=== PATIENT | female | born 1995 | race Two or more races ===

== ENCOUNTER 2020-06-20 20:22 | Emergency (ER) | payer OTHER ==
[2020-06-20] MEDS ORDERED: Sodium Chloride 0.9% 10 ML Syringe FLUSH PRN (21:06)
[2020-06-20] MEDS ORDERED: Ondansetron 4 MG/2 ML SDV IVPUSH ONE (21:06)
[2020-06-20] MEDS ORDERED: Sodium Chloride 0.9% 2.5 ML Syringe FLUSH PRN (21:06)
[2020-06-20] MEDS ORDERED: Lactated Ringers 1,000 ML IV ONE (21:06)
--- NOTE | 2020-06-20 21:14 | EDM.PDOC ---
ED HPI GENERAL MEDICAL PROBLEM - General Chief Complaint: General Stated Complaint: DEHYDRATION [id number] Time Seen by Provider: 06/20/20 21:05 Source of Information: Reports: Patient History Limitations: Reports: No Limitations - History of Present Illness INITIAL COMMENTS - FREE TEXT/NARRATIVE: 25-year-old female , [place] 7 weeks presents with nausea vomiting and not to lerating p.o. since Thursday. She has been taking vitamin B6, Unisom, vitamins. She denies fever, diarrhea, abdominal pain, leakage of fluid, vaginal bleeding, contractions, dysuria. Her ASSOCIATE PROFESSOR OF ENGINEERING = Dr. Wolfe. ROS: A 10-point review of systems, other than pertinent positives and negatives as stated per HPI, is otherwise negative Past medical history: No additional pertinent history Past Surgical history: No additional pertinent history Social history: No additional pertinent history Family history: No additional pertinent history PHYSICAL EXAM General: AOx4, GCS = 15, No distress HEENT: dry mucous membrane Neck: supple, no meningismus, no Kernig or Brudzinski Cardiac: S1S2 tachycardia Respiratory: CTAB, no crackles or rales, no wheezing Abdomen: Soft, nontender, no rebound or guarding, nondistended, no pulsatile mass. Back: nontender Musculoskeletal: NVI distally, no deformity Neuro: No focal deficits, CN 2 - 12 WNL. Chest Pain Score (Numeric/FACES): 7 - Related Data Allergies Allergy/AdvReac Type Severity Reaction Status Date / Time No Known Allergies Allergy Verified 06/20/20 20:37 Home Meds: Home Meds Doxylamine Succinate [Unisom] 1 tab PO DAILY PRN 01/05/18 [History] Pnv No.95/Ferrous Fum/Folic AC [ Tablet] 1 tab PO DAILY 01/05/18 [History] Pyridoxine HCl (Vitamin B6) [Vitamin B-6] 100 mg PO DAILY 01/05/18 [History] Iron,Carbonyl [Iron Chews] 45 mg PO DAILY 06/20/20 [History] Ondansetron [Zofran ODT] 4 mg PO Q6H PRN #12 tab.dis 06/20/20 [Rx] buPROPion [buPROPion XL] 150 mg PO DAILY 06/20/20 [History] Past Medical History - Past Health History Medical/Surgical History: Denies Medical/Surgical History HEENT History: Reports: Impaired Vision Cardiovascular History: Reports: None Respiratory History: Reports: None Gastrointestinal History: Reports: GERD Genitourinary History: Reports: None ASSOCIATE PROFESSOR OF ENGINEERING History: Reports: Musculoskeletal History: Reports: None Neurological History: Reports: Migraines Psychiatric History: Reports: Depression, Panic Attack, PTSD Endocrine/Metabolic History: Reports: Obesity/BMI 30+ Hematologic History: Reports: None Other Hematologic History: anemia during Immunologic History: Reports: None Oncologic (Cancer) History: Reports: None Dermatologic History: Reports: None - Infectious Disease History Infectious Disease History: Reports: Chicken Pox - Past Surgical History HEENT Surgical History: Reports: Oral Surgery, Other (See Below) Other HEENT Surgeries/Procedures: wisdom teeth extraction Endocrine Surgical History: Reports: None Neurological Surgical History: Reports: None - Past Imaging History Past Imaging History: Reports: Ultrasound Social & Family History - Family History Family Medical History: No Pertinent Family History HEENT: Reports: Hearing Impairment Cardiac: Reports: Other (See Below) Other Cardiac Family History: Enlarged heart OBGYN: Reports: Endocrine/Metabolic: Reports: Diabetes, type II - Caffeine Use Caffeine Use: Reports: None - Recreational Drug Use Recreational Drug Type: Reports: Marijuana/Hashish ED ROS GENERAL - Review of Systems Review Of Systems: See Below (see dictation) ED EXAM, GENERAL - Physical Exam Exam: See Below (see dictation) #1 Interpretation EKG Interpretation Comments: Heart rate = 89 bpm, normal sinus rhythm, normal QRS interval, no STEMI. EKG and rhythm strip interpreted by me at 2050 Course - Vital Signs Last Recorded V/S: Last Vital Signs Temp 98.8 F 06/20/20 20:40 Pulse 85 06/20/20 22:49 Resp 14 06/20/20 22:49 BP 111/88 06/20/20 22:49 Pulse Ox 96 06/20/20 22:49 Orthostatic Blood Pressure [ 142/77 Standing] Orthostatic Blood Pressure [ 121/81 Sitting] Orthostatic Blood Pressure [ 121/72 Supine] - Orders/Labs/Meds Orders: Active Orders 24 hr Category Date Time Status Cardiac Monitoring [RC] . DIRECTED Care 06/20/20 21:06 Active EKG 12 Lead [EKG Documentation Completion] [RC] STAT Care 06/20/20 20:59 Active CULTURE URINE [RM] Stat Lab 06/20/20 23:27 Ordered Sodium Chloride 0.9% [Saline Flush] Med 06/20/20 21:06 Active 10 ml FLUSH ASDIRECTED PRN Sodium Chloride 0.9% [Saline Flush] Med 06/20/20 21:06 Active 2.5 ml FLUSH ASDIRECTED PRN Saline Lock Insert [OM.PC] Stat Oth 06/20/20 21:06 Ordered Medication Orders Sodium Chloride (Saline Flush) 10 ml FLUSH ASDIRECTED PRN PRN Reason: Keep Vein Open Sodium Chloride (Saline Flush) 2.5 ml FLUSH ASDIRECTED PRN PRN Reason: Keep Vein Open Labs: Laboratory Tests 06/20/20 06/20/20 06/20/20 Range/Units 21:30 21:30 22:50 WBC 11.82 H (4.0-11.0) K/uL RBC 4.89 (4.30-5.90) M/uL Hgb 14.5 (12.0-16.0) g/dL Hct 41.4 (36.0-46.0) % MCV 84.7 (80.0-98.0) fL MCH 29.7 (27.0-32.0) pg MCHC 35.0 (31.0-37.0) g/dL RDW Std Deviation 36.3 (28.0-62.0) fl RDW Coeff of [place] 12 (11.0-15.0) % Plt Count 241 (150-400) K/uL MPV 11.60 (7.40-12.00) fL Neut % (Auto) 68.2 (48.0-80.0) % Lymph % (Auto) 24.0 (16.0-40.0) % [place] % (Auto) 7.4 (0.0-15.0) % Eos % (Auto) 0.3 (0.0-7.0) % Baso % (Auto) 0.1 (0.0-1.5) % Neut # (Auto) 8.1 H (1.4-5.7) K/uL Lymph # (Auto) 2.8 H (0.6-2.4) K/uL [place] # (Auto) 0.9 H (0.0-0.8) K/uL Eos # (Auto) 0.0 (0.0-0.7) K/uL Baso # (Auto) 0.0 (0.0-0.1) K/uL Nucleated RBC % 0.0 /100WBC Nucleated RBCs # 0 K/uL Sodium 139 (136-145) mmol/L Potassium 3.8 (3.5-5.1) mmol/L Chloride 104 (98-107) mmol/L Carbon Dioxide 19.1 L (21.0-32.0) mmol/L BUN 12 (7.0-18.0) mg/dL Creatinine 0.6 (0.6-1.0) mg/dL Est Cr Clr Drug Dosing 124.85 mL/min Estimated GFR (MDRD) > 60.0 ml/min Glucose 82 (74-106) mg/dL Calcium 9.3 (8.5-10.1) mg/dL Phosphorus 3.2 (2.6-4.7) mg/dL Magnesium 2.1 (1.8-2.4) mg/dL Total Bilirubin 0.6 (0.2-1.0) mg/dL AST 29 (15-37) IU/L ALT 31 (14-63) IU/L Alkaline Phosphatase 62 (46-116) U/L Total Protein 7.9 (6.4-8.2) g/dL Albumin 3.6 (3.4-5.0) g/dL Globulin 4.3 H (2.6-4.0) g/dL Albumin/Globulin Ratio 0.8 L (0.9-1.6) Lipase 52 L (73-393) U/L Urine Color YELLOW Urine Appearance CLEAR Urine pH 6.0 (5.0-8.0) Ur Specific [place] 1.010 (1.001-1.035) Urine Protein NEGATIVE (NEGATIVE) mg/dL Urine Glucose (UA) NEGATIVE (NEGATIVE) mg/dL Urine Ketones TRACE H (NEGATIVE) mg/dL Urine Occult Blood TRACE-INTACT H (NEGATIVE) Urine Nitrite NEGATIVE (NEGATIVE) Urine Bilirubin NEGATIVE (NEGATIVE) Urine Urobilinogen 0.2 (<2.0) EU/dL Ur Leukocyte Esterase SMALL H (NEGATIVE) Urine RBC NONE SEEN (0-2/HPF) Urine WBC 0-3 (0-5/HPF) Ur Epithelial Cells OCCASIONAL (NONE-FEW) Urine Bacteria FEW (NEGATIVE) Urine Mucus LIGHT (NONE-MOD) Meds: Medications Generic Name Dose Route Start Last Admin Trade Name Freq PRN Reason Stop Dose Admin Sodium Chloride 10 ml 06/20/20 21:06 Saline Flush FLUSH ASDIRECTED PRN Keep Vein Open Sodium Chloride 2.5 ml 06/20/20 21:06 Saline Flush FLUSH ASDIRECTED PRN Keep Vein Open Discontinued Medications Generic Name Dose Route Start Last Admin Trade Name Freq PRN Reason Stop Dose Admin Lactated Ringer's 1,000 mls @ 999 mls/hr 06/20/20 21:06 06/20/20 21:32 Ringers, Lactated IV 06/20/20 22:06 999 mls/hr .BOLUS ONE Administration Ondansetron HCl 4 mg 06/20/20 21:06 06/20/20 21:32 Zofran IVPUSH 06/20/20 21:07 4 mg ONETIME ONE Administration - Re-Assessments/Exams Free Text/Narrative Re-Assessment/Exam: 06/20/20 23:34 After IV fluids and Zofran in the ER, her symptoms improved and she wants to go home. I performed a repeat exam and did not appreciate new abnormal findings. Patient exhibits normal vital signs and has a normal gait on road test. I advised the patient to return to the ER for reevaluation if symptoms worsened, including fever, worsening pain, or any other worrisome symptoms. I instructed the patient to follow up with OBGYN within 2-3 days. MEDICAL DECISION MAKING: I reviewed the patients past medical records, lab and radiographic findings. I discussed the case with the patient. My differential diagnosis included: Hyperemesis gravidarum, dehydration, UTI. Her urine analysis did not demonstrate convincing UTI, urine culture sent. She feels much improved after IV fluids and Zofran, amendable for outpatient conservative management with Zofran and p.o. fluids. She has no complaints of pelvic pain, vaginal bleeding, LO F, I do not suspect threatened miscarriage or ectopic . Departure - Departure Time of Disposition: 23:29 Disposition: Home, Self-Care 01 Condition: Good Clinical Impression: Vomiting, Dehydration - Discharge Information *PRESCRIPTION DRUG MONITORING PROGRAM REVIEWED*: Not Applicable *COPY OF PRESCRIPTION DRUG MONITORING REPORT IN PATIENT FANNY: Not Applicable Prescriptions: Ondansetron [Zofran ODT] 4 mg PO Q6H PRN #12 tab.dis PRN Reason: Vomiting Instructions: Dehydration, Adult, [id number], Nausea and Vomiting, Adult Referrals: Cristina Wolfe MD [Primary Care Provider] - 3 Days Forms: ED Department Discharge Additional Instructions: The need for follow-up, as well as the timing and circumstances, are variable depending upon the specifics of your emergency department visit. If you don't have a primary care physician on staff, we will provide you with a referral. We always advise you to contact your personal physician following an emergency department visit to inform them of the circumstance of the visit and for follow-up with them and/or the need for any referrals to a consulting specialist. The emergency department will also refer you to a specialist when appropriate. This referral assures that you have the opportunity for follow-up care with a specialist. All of these measure are taken in an effort to provide you with optimal care, which includes your follow-up. Under all circumstances we always encourage you to contact your private physician who remains a resource for coordinating your care. When calling for follow-up care, please make the office aware that this follow-up is from your recent emergency room visit. If for any reason you are refused follow-up, please contact the [facility] Emergency Department at and asked to speak to the emergency department charge nurse. If you do not have a primary care doctor, please follow up with the clinics below within 3-5 days. [facility] - Primary Care [address] [place] [id number] [facility] [address] [place] [id number] Sepsis Event Note (ED) - Evaluation Sepsis Screening Result: No Definite Risk - Focused Exam Vital Signs: Vital Signs Temp Pulse Resp BP Pulse Ox 06/20/20 22:49 85 14 111/88 96 06/20/20 20:40 98.8 F 108 H 18 134/88 96 - My Orders Last 24 Hours: My Active Orders 06/20/20 20:59 EKG 12 Lead [EKG Documentation Completion] [RC] STAT 06/20/20 21:06 Cardiac Monitoring [RC] . DIRECTED Sodium Chloride 0.9% [Saline Flush] 10 ml FLUSH ASDIRECTED PRN Sodium Chloride 0.9% [Saline Flush] 2.5 ml FLUSH ASDIRECTED PRN Saline Lock Insert [OM.PC] Stat 06/20/20 23:27 CULTURE URINE [RM] Stat - Assessment/Plan Last 24 Hours: My Active Orders 06/20/20 20:59 EKG 12 Lead [EKG Documentation Completion] [RC] STAT 06/20/20 21:06 Cardiac Monitoring [RC] . DIRECTED Sodium Chloride 0.9% [Saline Flush] 10 ml FLUSH ASDIRECTED PRN Sodium Chloride 0.9% [Saline Flush] 2.5 ml FLUSH ASDIRECTED PRN Saline Lock Insert [OM.PC] Stat 06/20/20 23:27 CULTURE URINE [RM] Stat
[2020-06-20 22:49] VITALS: BP 111/88; PULSE 85
[2020-06-20 22:49] LABS: BLOOD UREA NITROGEN,BUN 12 mg/dL (7.0-18.0); CARBON DIOXIDE,CO2 19.1 mmol/L (21.0-32.0); CHLORIDE,CL 104 mmol/L (98-107); GLUCOSE RANDOM 82 mg/dL (74-106); LIPASE 52 U/L (73-393); POTASSIUM,K 3.8 mmol/L (3.5-5.1); SODIUM,NA 139 mmol/L (136-145)
== END 2020-06-20 23:40 | disposition home or self-care (01) ==
LOC: MW.ED 20:22
DX: E86.0 Dehydration (principal); R11.2 Nausea with vomiting, unspecified; F32.9 Major depressive disorder, single episode, unspecified; E66.9 Obesity, unspecified; Z68.32 Body mass index [BMI] 32.0-32.9, adult; Z3A.01 Less than 8 weeks gestation of pregnancy
CPT/HCPCS: 36415; 80053; 81001; 83690; 83735; 84100; 85025; 87086; 93005; 96374; 99284; J2405; J7120; 93010; 99283